=== PATIENT | male | born 1965 | race Caucasian/White ===

== ENCOUNTER 2016-11-19 16:01 | Inpatient (IN) | payer BC ==
--- NOTE | ~2016-11-19 | HP ---
History And Physical [id number] [facility] [place]. [address] NAME: BRUNA PITTMAN : 61 STATUS : ADM Jenn PAT#: [id number] AGE: 51 ADM/REG DATE : 11/19/16 MR#: [id number] REPORT SERV DATE: 11/20/16 DICTATED BY: MIO ACOSTA DATE: 11/19/16 REPORT STATUS : Draft TRANSCRIBED BY: MODAzael DATE: 11/19/16 DATE OF ADMISSION: 11/19/2016 CHIEF COMPLAINT: Abnormal blood work. HISTORY OF PRESENT ILLNESS: Obtained from the patient, who is a rather very poor historian as well as reports given to the emergency room department from medical staff at "[facility]," where the patient resides. Apparently, the patient has elevated potassium in the setting of a chronic kidney disease and the patient was sent to our Hospitalist Service in the emergency room initially for further management and evaluation. The patient denies any complaints. He says that he is weak and hungry, but does not have any specific complaints. No chest pain. No palpitations. No muscle cramps. Nothing change from his usually state of being. It seems the patient has blood work done on 11/17/2016, and showed a potassium of 6.8 with a creatinine of 2.1. Subsequently, the patient had blood work repeated today in the morning that showed potassium of 5.8 and a creatinine of 2.08, because of that, the patient was sent over to the emergency room for evaluation and treatment. Upon arrival in our emergency room, the patient had a potassium 6.5, creatinine 2.12 with no EKG changes suggestive of hyperkalemia. As of note in June 2016, the patient had laboratory tests done as well that showed a time similar lab test with a potassium of 5.9, and a creatinine of 2.25. Even more after reviewing the patient's home medication list, the patient is on NITO inhibitor, lisinopril as well as rather large dose of Aldactone chronically, and even more puzzling, the patient and family present at bedside seem to not be aware of any dietary restrictions, as they come with the chronic kidney disease, the patient apparently has for a while and he was just asking for some crystal cheese to have for dinner (? !). Nevertheless, because of the above elevated potassium in the setting of chronic kidney disease, emergency room has considered, the patient needs to be admitted for further management and evaluation. PAST MEDICAL HISTORY: As obtained from medical records as information is limited and the patient has a significant memory loss. The patient has a history of hypertension, has a history of CVA with left-sided hemiplegia. He apparently has memory loss secondary to prior alcohol abuse with detox. Possible Wernicke's encephalopathy. History of chronic kidney disease, according to our laboratory data since June 2016, creatinine around 2.2. History of GERD. History of diabetes type 2, not insulin dependent. History of anemia, chronic with laboratory testing also since June 2016, stable with the same hemoglobin and hematocrit. PAST SURGICAL HISTORY: Not available, the patient unable to recall. SOCIAL HISTORY: The patient is and lives at "[facility]" with apparent more supervision and medical care. His ex-, who is the bedside presently denies tobacco abuse, denies alcohol abuse, but he apparently used to drink heavily in the past because he had suffered memory loss and has been on detox for alcohol. Denies illicit recreational drug abuse. FAMILY HISTORY: Significant for hypertension and diabetes. History And Physical [address] [address] NAME: BRUNA PITTMAN : 61 STATUS : ADM Jenn PAT#: [id number] AGE: 51 ADM/REG DATE : 11/19/16 MR#: [id number] REPORT SERV DATE: 11/20/16 DICTATED BY: MIO ACOSTA DATE: 11/19/16 REPORT STATUS : Draft TRANSCRIBED BY: VERNA DATE: 11/19/16 ALLERGIES: NO KNOWN DRUG ALLERGIES. MEDICATIONS: According to the list provided, the patient is supposed to take Tylenol 325 to 650 mg p.o. q.i.d. p.r.n. pain and fever, Norvasc 5 mg p.o. q.a.m., vitamin B12 1000 mcg p.o. daily, Prozac 80 mg p.o. q.a.m., folic acid 1 mg p.o. q.a.m., Lasix 40 mg p.o. q.a.m., Amaryl 2 mg p.o. q.a.m., hydrocodone 5/325 one p.o. q.8 hours p.r.n. pain, lisinopril 20 mg p.o. q.a.m. plus does given today, Imodium 2 mg p.o. q.6 hours p.r.n. diarrhea, metformin 1000 mg p.o. q.a.m., nadolol 40 mg p.o. q.a.m., Florastor Probiotic 250 mg p.o. b.i.d., Aldactone 50 mg p.o. q.a.m., thiamine 100 mg p.o. q.a.m., triamcinolone cream topically b.i.d. to affected area. REVIEW OF SYSTEMS: Per H and P, otherwise negative in all review of systems. Please note that the comprehensive review of system was obtained and pertinent positives were including in the H and P. PHYSICAL EXAMINATION: GENERAL: Pleasant, cooperant, in no distress. VITAL SIGNS: Upon arrival in the emergency room: Blood pressure 146/62, pulse 57, respiratory rate 16, temperature 98.4, oxygen saturation 98% in room air. HEENT: With pupils equal, round, and reactive to light. Extraocular movements intact. Throat, mild erythema. No exudate. No signs of tenderness. NECK: Supple. No JVD. No bruits. No thyromegaly. No lymph nodes. LUNGS: Bilateral air entry with few bibasilar rales. No wheezing. Good airway movement. HEART: Positive S1, S2. Regular rate and rhythm. Positive soft mitral regurgitation murmur at the apex. No rub. No gallop. PMI not displaced. ABDOMEN: Positive bowel sounds. Soft, nontender. No guarding. No hepatosplenomegaly. EXTREMITIES: Decreased range of motion, osteoarthritic changes. No clubbing, no cyanosis, no edema, no calf tenderness. +2 pulses. NEUROLOGIC: Alert and oriented x2 to x3 easily reoriented to time with neurologic exam at baseline with known left-sided hemiplegia with a prior CVA. No significant change from prior changes. Appropriate mood and affect. Cranial nerves 2 through 12 grossly intact. BACK: With decreased range of motion. No focal localized tenderness. No CVA tenderness. SKIN: No bruises, no rashes, no lacerations. SIGNIFICANT LABORATORY DATA: Upon arrival and investigation in the emergency room, the patient had sodium 137, potassium 6.5, chloride 111, bicarb 18, BUN 49, creatinine 2.12, glucose 74. Calcium 8.3. Liver function tests within normal limits except A Phos 257, which is slightly elevated; ammonia level 22, which is within normal limits. White cell count 8, hemoglobin 9.2 with a hematocrit of 26.1, platelet count 128, INR 1.1. Urinalysis was within normal limits. No signs of infection. Please note that the review of laboratory testing showed in 07/09/2016, the hemoglobin 8.6, potassium 5.9, creatinine 2.25, platelet count 129. Earlier in the week 48 hours ago on 11/17/2016, hemoglobin was 8.7 with a potassium 6.8 and a creatinine 2.1, and earlier today at outpatient laboratory testing potassium was 5.8 and bicarb 20 with a creatinine 2.08. It seems that the patient is in the process of being evaluated as an outpatient by Dr. Babcock, neurologist and an MRI is schedule History And Physical [address] [address] NAME: BRUNA PITTMAN : 61 STATUS : ADM Jenn PAT#: [id number] AGE: 51 ADM/REG DATE : 11/19/16 MR#: [id number] REPORT SERV DATE: 11/20/16 DICTATED BY: MIO ACOSTA ION DATE: 11/19/16 REPORT STATUS : Draft TRANSCRIBED BY: VERNA DATE: 11/19/16 for 11/22/2016, and their laboratory testing done as an outpatient just a few days ago with similar results including potassium 6.8, creatinine 2.1. Furthermore, they are testing B12, folate, hemoglobin A1c with no revealing was significant, values added to the medical chart and reviewed by the Hospitalist Service upon admission. EKG (personal reading) showed sinus bradycardia at 51 beats per minute. No EKG changes to suggest hyperkalemia. ASSESSMENT AND PLAN AND PROBLEM LIST: The patient is a pleasant 51-year-old man in [facility] since July 2015, likely secondary to his cerebrovascular accident and memory loss with alcohol-related problems that was sent over to the emergency room department for normal potassium. IMPRESSION: 1. Hyperkalemia likely secondary to the medications and possible diet in the setting of chronic kidney disease. The patient had received already treatment in the emergency room with D50 IV with regular insulin and calcium gluconate as well as another amp of sodium bicarb IV x1 and gentle IV hydration normal saline. We are going to give Kayexalate two doses and review in a.m. We are going to hold the lisinopril/NITO inhibitor, which is contraindicated due to his hyperkalemia and Aldactone also contraindicated due to hyperkalemia. We are going to increase Norvasc for blood pressure control and use IV hydralazine p.r.n. for increased blood pressure. 2. Chronic kidney disease, stage 3 to stage 4, presently stable. Continue to monitor for now and further workup with his primary care provider. 3. Cardiovascular:. a. Hypertension, essential hypertension. We are going to hold NITO inhibitor and hold ARB, hold Aldactone, increased Norvasc and use IV hydralazine p.r.n. b. Sinus bradycardia likely due to the beta francois. We are going to decrease the dose of Corgard and continue to monitor for now. The patient is asymptomatic with it. 4. Endocrinologic problem:. a. Diabetes type 2, not insulin dependent with applications. We are going to hold metformin and Amaryl during his hospital stay and restart at time of discharge. May consider changes also depending on his kidney function, especially the metformin due to his chronic kidney disease. b. Hyperlipidemia, mixed-type. We are going to check a lipid profile in the a.m., low cholesterol diet. 5. Hematologic problem with:. a. Anemia likely of chronic disease, presently stable. We are going to continue to monitor for now. b. Thrombocytopenia low platelets, also apparently stable and chronic. No signs of bruises or bleeding at this moment. Continue to monitor. 6. Neurologic and psychiatric problem. a. Memory loss, possibly related to prior alcohol abuse. Question of Wernicke's encephalopathy. The patient has an appointment and is scheduled to follow up with Dr. Babcock, Neurology. I am going to defer further evaluation as per Neurology. b. Cerebrovascular accident status post cerebrovascular accident with late effects and left-sided hemiplegia, presently stable. History And Physical [address] [place]. [address] NAME: BRUNA PITTMAN : 61 STATUS : ADM Jenn PAT#: [id number] AGE: 51 ADM/REG DATE : 11/19/16 MR#: [id number] REPORT SERV DATE: 11/20/16 DICTATED BY: MIO ACOSTA DATE: 11/19/16 REPORT STATUS : Draft TRANSCRIBED BY: VERNA DATE: 11/19/16 c. Depression and anxiety. Provide emotional support. d. Continue his Prozac. 7. Gastroesophageal reflux disease without esophagitis. Continue medications. Anti- reflux/anti-gastroesophageal reflux disease instructions provided to the patient and family. Please note, the patient as well as family seem to have lack of knowledge and awareness regarding changes in diet that need to be made with the patient's chronic kidney disease and hyperkalemia, and therefore we are going to provide a security representative consult and asked care for dietary changes and samples regarding education material for his chronic kidney disease. Please note, the patient is a full code at this moment as discussed with the patient at bedside and according to his prior medical records sent over with the patient. Please note, also the written H and P, and written orders and instructions. RF/VERNA Mio Acosta M.D. / [id number] CC: MD Juan Simms MD
--- NOTE | ~2016-11-19 | DS ---
Discharge Summary [id number] [place]. [address] NAME: BRUNA PITTMAN : 61 STATUS : DIS Jenn PAT#: [id number] AGE: 51 ADM/REG DATE : 11/19/16 MR#: [id number] REPORT SERV DATE: 11/22/16 DICTATED BY: SIRI MITTAL DATE: 11/21/16 REPORT STATUS : Draft TRANSCRIBED BY: MODAzael DATE: 11/21/16 ADMISSION DATE: 11/19/2016 DISCHARGE DATE: 11/21/2016 More than 30 minutes was spent in total on this discharge. DISCHARGE DIAGNOSES: Include: 1. Hyperkalemia secondary to chronic kidney disease plus Aldactone and NITO inhibitor. 2. Acute kidney injury on chronic kidney disease. 3. Heavy proteinuria without edema and without hypoalbuminemia. DISCHARGE MEDICATIONS: Include amlodipine 5 mg twice daily; B12, 1000 mcg daily; Prozac 80 mg daily; folic acid 1 mg daily; Lasix 40 mg daily; nadolol 40 mg daily; thiamine 100 mg daily; triamcinolone cream; Amaryl 2 mg daily; lisinopril 20 mg daily; metformin 1000 daily; [place] 5/325 p.r.n.; and hydralazine 50 mg 1 p.o. b.i.d. Please note that his lisinopril and Aldactone have been discontinued. DISPOSITION: The patient will be discharged back to the [facility] in excellent condition. He will follow up with Dr. Sheets in one week and I did have a long discussion with the family. I explained to them that he does need a Nephrology consultation with his heavy proteinuria. He does not currently have nephrotic syndrome. They will ensure that he has a Nephrology appointment. LABORATORY DATA: Pertinent labs during hospitalization includes discharge blood glucose of 104. Discharge sodium 142, potassium 5.2, chloride 117, bicarb 16, BUN and creatinine 31 and 1.47, glucose 90, and calcium 8.2. Urinalysis with greater than 500 protein, otherwise, negative. Chest x-ray was negative. HOSPITAL COURSE: Mr. Pittman is a very pleasant 51-year-old white gentleman, patient of Dr. Sheets at the [facility], who was presented and was admitted for hyperkalemia, acute kidney injury on top of chronic kidney disease, and hypertension. It was also noted that he had some proteinuria. He was admitted and given IV fluids. His lisinopril and Aldactone were held. His creatinine dropped almost immediately and his potassium improved markedly. Recheck on his urinalysis did show continued proteinuria. He did not have any hypoalbuminemia or edema, and therefore, the patient would not meet the criteria for nephrotic syndrome. I did explain to the family that he does need followup with Nephrology and they will schedule that as an outpatient. DICTATED BY: Siri Mittal M.D. DD/VERNA Discharge Summary [address] [address] NAME: BRUNA PITTMAN : 61 STATUS : DIS Jenn PAT#: [id number] AGE: 51 ADM/REG DATE : 11/19/16 MR#: [id number] REPORT SERV DATE: 11/22/16 DICTATED BY: SIRI MITTAL DATE: 11/21/16 REPORT STATUS : Draft TRANSCRIBED BY: VERNA DATE: 11/21/16 Siri Mittal M.D. / [id number] CC: Emily Coronel
[2016-11-19 19:13] LABS: BASOPHILS 0.4 %; BASOPHILS ABSOLUTE 0.03 10/3/uL (0.0-0.16); EOSINOPHILS 2.5 %; HEMATOCRIT 26.1 % (40.0-51.0); HEMOGLOBIN 9.2 g/dL (13.6-17.8); IMMATURE GRANULOCYTES 0.4 %; IMMATURE GRANULOCYTES ABSOLUTE 0.03 10/3/uL (0.0-0.11); LYMPHOCYTES 11.7 %; LYMPHOCYTES ABSOLUTE 0.93 10/3/uL (0.67-4.30); MEAN CORPUS HGB CONC 35.2 g/dL (32.0-36.0); MEAN CORPUSCULAR HEMOGLOB 29.9 pg (26.0-34.0); MEAN CORPUSCULAR VOLUME 84.7 fL (80-100); MEAN PLATELET VOLUME 9.1 fL (9.2-13.0); MONOCYTES 8.3 %; MONOCYTES ABSOLUTE 0.66 10/3/uL (0.21-1.20); NEUTROPHILS 76.7 %; PLATELET COUNT 128 10/3/uL (150-400); RED CELL COUNT 3.08 10/6/uL (4.7-6.1)
[2016-11-19 19:16] LABS: MANUAL DIFF NO %
[2016-11-19 19:24] LABS: PARTIAL THROMBO TIME 30.4 SEC (22.5-37.2)
[2016-11-19 19:26] LABS: A/G RATIO 0.9 (0.7-1.9); ALBUMIN 3.5 G/DL (3.5-5.0); BUN (BLOOD UREA NITROGEN) 49 MG/DL (6-23); CALCIUM, SERUM 8.3 MG/DL (8.5-10.4); CHLORIDE, SERUM 111 MMOL/L (96-112); CO2 (CARBON DIOXIDE) 18 MMOL/L (24-34); CREATININE 2.12 MG/DL (0.70-1.30); GFR AFRICAN AMERICAN 40 ML/MIN (>=60); GFR NON AFRICAN AMERICAN 34 ML/MIN (>=60); GLOBULIN 4.1 G/DL (2.5-4.1); SGOT(AST) 18 U/L (5-40); SGPT(ALT) 26 U/L (5-65); SODIUM, SERUM 137 MMOL/L (135-148); TOTAL BILIRUBIN 0.3 MG/DL (0-1.2); TOTAL PROTEIN 7.6 G/DL (6.0-8.5)
[2016-11-19 19:27] LABS: ALKALINE PHOSPHATASE 257 U/L (45-117); GLUCOSE, SERUM 74 MG/DL (60-99); POTASSIUM, SERUM 6.5 MMOL/L (3.5-5.3)
[2016-11-19 19:45] LABS: INTERNATIONAL NORMAL RATI 1.1 UNITS (-); PROTIME (NOT ORD) 14.3 SEC (12.0-14.5)
[2016-11-19] MEDS ORDERED: NORV5 PO (20:13)
[2016-11-19] MEDS ORDERED: FOLIC PO (20:13)
[2016-11-19] MEDS ORDERED: FLORASTOR250 MG PO (20:13)
[2016-11-19] MEDS ORDERED: L40 PO (20:13)
[2016-11-19] MEDS ORDERED: PROZAC40 MG PO (20:14)
[2016-11-19] MEDS ORDERED: 15KENA.025 TOP (20:15)
[2016-11-19] MEDS ORDERED: GLUCOPHAGE1000 MG PO (20:19)
[2016-11-19] MEDS ORDERED: PRIN20 PO (20:19)
[2016-11-19] MEDS ORDERED: AMARYL2 PO (20:19)
[2016-11-19] MEDS ORDERED: SPIRO50 PO (20:19)
[2016-11-19] MEDS ORDERED: COR40 PO (20:19)
[2016-11-19] MEDS ORDERED: T PO (20:20)
[2016-11-19] MEDS ORDERED: IMOD PO (20:20)
[2016-11-19] MEDS ORDERED: NORCO1 TA1 PO (20:20)
[2016-11-19] MEDS ORDERED: B1100 PO (20:21)
[2016-11-19] MEDS ORDERED: VITAMIN B-121000 MC1 PO (20:21)
[2016-11-19 20:24] LABS: WBC (NOT ORDERED) (RFLEX) 0 (0-5)
[2016-11-19 20:33] LABS: ASCORBIC ACID (UR NOT ORDER) NEG (NEG); BILIRUBIN, URINE NEGATIVE (NEG); ER URINALYSIS TAT 0 Hrs 09 Mins; KETONE, URINE NEGATIVE (NEG); LEUKOCYTE ESTERASE(NOT OR NEG (NEG); NITRITE (URINE) NEG (NEG)
[2016-11-19 22:42] LABS: PHOSPHORUS, SERUM 4.6 MG/DL (2.5-4.5)
[2016-11-20 05:47] LABS: BASOPHILS 0.2 %; BASOPHILS ABSOLUTE 0.01 10/3/uL (0.0-0.16); EOSINOPHILS 2.1 %; HEMATOCRIT 23.9 % (40.0-51.0); HEMOGLOBIN 8.2 g/dL (13.6-17.8); IMMATURE GRANULOCYTES 0.2 %; IMMATURE GRANULOCYTES ABSOLUTE 0.01 10/3/uL (0.0-0.11); LYMPHOCYTES 19.7 %; LYMPHOCYTES ABSOLUTE 0.93 10/3/uL (0.67-4.30); MEAN CORPUS HGB CONC 34.3 g/dL (32.0-36.0); MEAN CORPUSCULAR HEMOGLOB 29.1 pg (26.0-34.0); MEAN CORPUSCULAR VOLUME 84.8 fL (80-100); MEAN PLATELET VOLUME 9.7 fL (9.2-13.0); MONOCYTES 7.9 %; MONOCYTES ABSOLUTE 0.37 10/3/uL (0.21-1.20); NEUTROPHILS 69.9 %; NEUTROPHILS ABSOLUTE 3.29 10/3/uL (2.02-8.40); PLATELET COUNT 95 10/3/uL (150-400); RED CELL COUNT 2.82 10/6/uL (4.7-6.1)
[2016-11-20 05:50] LABS: MANUAL DIFF NO %; WHITE BLOOD CELLS 4.7 10/3/uL (4.5-10.5)
[2016-11-20 06:01] LABS: CALCIUM, SERUM 8.4 MG/DL (8.5-10.4); CHLORIDE, SERUM 117 MMOL/L (96-112); CHOL/HDL RATIO(NOT ORDER) 6.7 (0-5); CHOLESTEROL 153 MG/DL (< 200); CO2 (CARBON DIOXIDE) 18 MMOL/L (24-34); CREATININE 1.93 MG/DL (0.70-1.30); GFR AFRICAN AMERICAN 45 ML/MIN (>=60); GFR NON AFRICAN AMERICAN 39 ML/MIN (>=60); HDL CHOLESTEROL 23 MG/DL (> 39); LDL CHOLESTEROL 88 MG/DL (< 130); NON-HDL CHOLESTEROL 130 MG/DL (< 160); PHOSPHORUS, SERUM 4.3 MG/DL (2.5-4.5); POTASSIUM, SERUM 5.3 MMOL/L (3.5-5.3); SODIUM, SERUM 141 MMOL/L (135-148); TRIGLYCERIDE 214 MG/DL (< 150)
[2016-11-20 06:06] LABS: BUN (BLOOD UREA NITROGEN) 43 MG/DL (6-23); GLUCOSE, SERUM 95 MG/DL (60-99)
[2016-11-21 05:36] LABS: ASCORBIC ACID (UR NOT ORDER) NEG (NEG); BILIRUBIN, URINE NEGATIVE (NEG); KETONE, URINE NEGATIVE (NEG); LEUKOCYTE ESTERASE(NOT OR NEG (NEG); WBC (NOT ORDERED) (RFLEX) < 1 (0-5)
[2016-11-21 05:43] LABS: CALCIUM, SERUM 8.2 MG/DL (8.5-10.4); CHLORIDE, SERUM 117 MMOL/L (96-112); CO2 (CARBON DIOXIDE) 16 MMOL/L (24-34); CREATININE 1.47 MG/DL (0.70-1.30); GFR AFRICAN AMERICAN 62 ML/MIN (>=60); GFR NON AFRICAN AMERICAN 54 ML/MIN (>=60); GLUCOSE, SERUM 90 MG/DL (60-99); POTASSIUM, SERUM 5.2 MMOL/L (3.5-5.3); SODIUM, SERUM 142 MMOL/L (135-148)
[2016-11-21 05:44] LABS: BUN (BLOOD UREA NITROGEN) 31 MG/DL (6-23)
== END 2016-11-21 17:50 | DRG 641 ==
LOC: ER 16:01 → 2SO 21:24
PROVIDERS: Family Medicine; Internal Medicine; Nurse Practitioner
DX: E87.5 Hyperkalemia (principal); E11.22 Type 2 diabetes mellitus with diabetic chronic kidney disease; N18.4 Chronic kidney disease, stage 4 (severe); N17.9 Acute kidney failure, unspecified; I69.354 Hemiplegia and hemiparesis following cerebral infarction affecting left non-dominant side; D69.6 Thrombocytopenia, unspecified; I12.9 Hypertensive chronic kidney disease with stage 1 through stage 4 chronic kidney disease, or unspecified chronic kidney disease; Z79.84 Long term (current) use of oral hypoglycemic drugs; E78.2 Mixed hyperlipidemia; D63.8 Anemia in other chronic diseases classified elsewhere; F32.9 Major depressive disorder, single episode, unspecified; F41.9 Anxiety disorder, unspecified; K21.9 Gastro-esophageal reflux disease without esophagitis; T50.0X5A Adverse effect of mineralocorticoids and their antagonists, initial encounter; R80.9 Proteinuria, unspecified
CPT/HCPCS: 36415; 71010; 80048; 80053; 80061; 80069; 81001; 82140; 82962; 83735; 84100; 85025; 85610; 85730; 86850; 86900; 86901; 93005; 96374; 96375; 99284; A9270-GY; J0360; J0610